=== PATIENT | male | born 1995 | race Hispanic/Latino ===

== ENCOUNTER 2025-09-13 11:03 | Emergency (ER) | payer SELFPAY ==
[2025-09-13] MEDS ORDERED: Multivit, Adult Inj 10 ML VIAL ONE (11:39)
[2025-09-13] MEDS ORDERED: Pantoprazole 40 MG VIAL ONE (11:39)
[2025-09-13] MEDS ORDERED: Folic Acid 5 MG/ML MDV ONE (11:39)
[2025-09-13] MEDS ORDERED: Famotidine/PF 20 mg/2ml Vial ONE (11:39)
[2025-09-13 12:01] LABS: ALT (SGPT) 109 U/L (Less than 45); AST (SGOT) 153 U/L (11-34); Albumin 4.0 g/dL (3.1-4.5); Alkaline Phosphatase 57 U/L (40-110); Anion Gap 24 mmol/L (10-20); BUN (Urea Nitrogen) 9 mg/dL (8.9-20.6); Bilirubin, Total 1.0 mg/dL (0.3-1.2); Calc. Creatinine Clearance 0 mL/min (70-130); Calcium 8.6 mg/dL (7.8-10.44); Carbon Dioxide 20 mmol/L (22-29); Chloride 103 mmol/L (98-107); Globulin 3.4 g/dL (2.4-3.5); Glucose 119 mg/dL (70-105); Lipase 33 U/L (8-78); Potassium 3.5 mmol/L (3.5-5.1); Red Blood Cell (RBC) Count 5.06 mill/uL (4.70-6.10); Sodium 143 mmol/L (136-145); White Blood Cell (WBC) Count 3.6 10x3/uL (4.8-10.8)
[2025-09-13 12:02] LABS: Hematocrit 43.8 % (42.0-52.0); Hemoglobin 15.6 g/dL (14.0-18.0); Mean Corpuscular Hemoglobin 30.8 pg (27.0-31.0); Mean Corpuscular Volume 86.5 fl (78.0-98.0); Platelet Count 154 10x3/uL (130-400)
[2025-09-13 12:03] LABS: Platelet Adequacy Comment Platelets Normal
== END 2025-09-13 13:45 | disposition home or self-care (01) ==
LOC: NAV ERS 11:03
DX: K29.20 Alcoholic gastritis without bleeding (principal); K70.10 Alcoholic hepatitis without ascites; F10.20 Alcohol dependence, uncomplicated; F17.210 Nicotine dependence, cigarettes, uncomplicated
CPT/HCPCS: 36415; 74177; 80053; 83690; 85025; 96361; 96374; 96375; J1308; J2470; J2550; J3411; J7042